=== PATIENT | female | born 1965 | race American Indian/Alaskan Native ===

== ENCOUNTER → 2017-04-03 | Outpatient (CLI) | payer MEDICAID ==
[~2017-04-03] MED LIST: ASPI325T4 PO; CHOL20003 PO; CYCL5TAB PO; DIAZ10TA PO; DILT240C PO; GABA600T2 PO; GABAPENTIN PO; HYDR-3144 PO; HYDR25TA6 PO; HYDROCHLOROTHIAZIDE PO; LISI-170 PO; LISINOPRIL PO; MULT-464 PO; NABU500T PO; OXYC-229 PO; OXYC20TA42 PO; PREG25CA PO; TAZTIA XT PO; TOPI25CA PO; Will bring list DOS
[2017-04-03 13:45] LABS: ASPARTATE AMINO TRANSFERASE 24 U/L (15-37); BLOOD UREA NITROGEN 13 mg/dL (7-18)
== END | disposition home or self-care (01) ==
LOC: STAR 12:06
PROVIDERS: ATTEND Orthopaedic Surgery
DX: Z01.818 Encounter for other preprocedural examination (principal); M17.11 Unilateral primary osteoarthritis, right knee
CPT/HCPCS: 36415; 80053; 81003; 85025; 87081